=== PATIENT | female | born 1970 | race Caucasian/White ===

== ENCOUNTER 2020-12-24 10:49 | Day surgery (SDC) | payer BC, SELFPAY ==
[2020-12-24] VITALS (14 sets, daily range): BP systolic 111–154; BP diastolic 63–112; PULSE 72–105; RESP 15–26; TEMP 36.1–36.9; O2SAT 93–100; BMI 29.0
--- NOTE | ~2020-12-24 | CT_ITS ---
EXAMINATION: CT abdomen pelvis w con INDICATION: Right-sided abdominal pain TECHNIQUE: Computed tomographic images of the abdomen and pelvis were obtained after the administrati on of 100 cc of Omnipaque 350 intravenous contrast. The dose-length product (DLP) was 530.56 mGy-cm. Automated exposure control and iterative reconstruction technique were employed. COMPARISON: 11/08/2007 FINDINGS: Minimal dependent atelectasis is present in the lung bases. The heart size is normal. The l iver is diffusely low in attenuation when compared with the spleen, consistent with hepatic steatosis . The spleen, pancreas, gallbladder, and adrenal glands are normal. Cysts of the kidneys measure up t o 1.6 cm on the right. The dilated appendix measures up to 1.2 cm. There is edematous stranding of th e periappendiceal fat. No perforation or periappendiceal abscess is identified. No pathologically enl arged abdominal or pelvic lymph nodes are identified. There is no free intraperitoneal gas or evidenc e of bowel obstruction. There is a tiny umbilical hernia containing fat. Changes of hysterectomy are noted. IMPRESSION: 1. Acute appendicitis. These findings were discussed with Dr. Celestino Fuller in the Emergency Depa rtment at 1416 hours on 12/24/2020. Reviewed, dictated and finalized at location A. IMPRESSION: 1. Acute appendicitis. These findings were discussed with Dr. Celestino Fuller in the Emergency Department at 1416 hours on 12/24/2020.
[2020-12-24 13:01] LABS: Add Urine Microscopic? YES; Appearance Urine Clear (Clear); Bacteria Urine Trace /hpf; Bilirubin Urine Negative (Negative); Blood Urine 1+ (Negative); Color Urine Yellow (Yellow); Glucose Urine UA Negative (Negative); Ketones Urine Negative (Negative); Leukocyte Esterase Ur Negative LEU/UL (Negative); Mucus Urine Rare /lpf; Nitrate Urine Negative (Negative); Protein Urine Negative (Negative); RBC Urine 0-2 /hpf (0-2); Specific Grav Ur 1.011 (1.001-1.035); Squamous Epithelial Cell Urine Occasional /hpf (Few); Urobilinogen Urine Negative mg/dL (<2.0); WBC Urine 0-3 /hpf
[2020-12-24 13:02] LABS: Basophils Percent Auto 0.4 % (0.2-1.2); Eosinophils Absolute Auto 0.3 K/mm3 (0-0.3); Eosinophils Percent Auto 2.6 % (0-4.4); Immature Granulocyte Absolute 0.03 K/mm3 (0.00-0.031); Immature Granulocyte Percent A 0.3 % (0-0.5); Lymphocytes Absolute Auto 2.58 K/mm3 (0.9-3.2); Lymphocytes Percent Auto 26.7 % (18.3-44.2); Mean Corpuscular HGB Conc 32.6 g/dl (32-36); Mean Corpuscular Hemoglobin 30.7 pg (26-34); Mean Corpuscular Volume 94.3 fl (80-100); Mean Platelet Volume 9.8 fl (7.4-10.4); Monocytes Absolute Auto 0.5 K/mm3 (0.1-0.6); Monocytes Percent Auto 5.3 % (2.6-8.5); Neutrophils Absolute Auto 6.3 K/mm3 (1.3-6.7); Neutrophils Percent Auto 64.7 % (45.5-73.1); Platelet Count Result 293 k/mm3 (150-375); Red Blood Count 4.88 M/mm3 (4.2-5.4); Red Cell Distribution Width 12.8 % (11.5-14.5); White Blood Count 9.7 K/mm3 (4.5-10.0)
--- NOTE | 2020-12-24 13:12 | PC.NURSE ---
EDP AT BEDSIDE.
--- NOTE | 2020-12-24 13:14 | ED.ABDPAIN ---
HPI - Abdominal Pain General Chief Complaint: Abdominal Pain Stated Complaint: right abd pain Time Seen by Provider: 12/24/20 13:09 Source: RN notes reviewed History of Present Illness HPI narrative: Patient presents emergency department from home for abdominal pain. Patient states that pain began 2 days ago in the periumbilical area and has since been localized to the right lower quadrant described as aching in nature. States is associated with nausea. Denies any fevers or chills chest pain, shortness of breath, vomiting, diarrhea or any other symptoms patient states she is taking no medication for the pain today. Gone to urgent care for evaluation was referred to the ED for further evaluation Related Data Allergies Allergy/AdvReac Type Severity Reaction Status Date / Time No Known Allergies Allergy Unverified 05/19/17 06:33 Review of Systems Review of Systems: Narrative: Gen.: Denies fevers or chills ENT: Denies congestion Respiratory: Denies shortness of breath or cough CV: Denies chest pain or palpitations GI: See HPI denies burning, urgency, frequency or hematuria Musculoskeletal: Denies back pain or muscle pain Neuro: Denies numbness, tingling, weakness or focal weakness Skin: Denies rash Except as documented, all other systems reviewed and negative PMFSH Past Medical History Medical History (Updated 12/24/20 @ 15:10 by Celestino Fuller DO) Patient denies significant medical history Social History Social History Smoking status: Never smoker Alcohol intake: current Exam Narrative: Exam Narrative: APPEARANCE: No acute distress, nontoxic, resting in bed HEENT: Normocephalic, atraumatic, OMM RESPIRATORY: No respiratory distress, clear to auscultation bilaterally with no rhonchi wheezing or rales CARDIOVASCULAR: RRR s murmur ABDOMINAL: Soft nondistended tender palpation right lower quadrant no tenderness in right upper quadrant left lower quadrant positive rebound no guarding MUSCULOSKELETAl: Moves all extremities. No clubbing, cyanosis or edema. NEURO: Awake and alert. Following commands, speech normal, no focal deficits SKIN:: Warm, dry. Normal Color PSYCHIATRIC: Normal affect/mood Course Course Emergency Course: Discussed with JEWELS Garcia for Dr. Menon came to evaluate patient in the ED. Dr. Menon will take the patient for surgery today Discussed with patient diagnosis of appendicitis discussed plan for ORN in agreement at this time all questions answered Vital Signs Vital signs: Vital Signs Temperature 98.3 F 12/24/20 11:24 Pulse Rate 84 12/24/20 11:24 Respiratory Rate 16 12/24/20 11:24 Blood Pressure 152/112 H 12/24/20 11:24 Pulse Oximetry 97 12/24/20 11:24 Temperature 98.3 F 12/24/20 11:24 Pulse Rate 78 12/24/20 15:01 Respiratory Rate 18 12/24/20 15:01 Blood Pressure 145/68 H 12/24/20 15:01 Pulse Oximetry 99 12/24/20 15:01 MDM - Abdominal Pain Lab Data Result diagrams: 12/24/20 12:19 12/24/20 12:19 Labs: Lab Results 12/24/20 12/24/20 12/24/20 Range/Units 12:19 12:19 12:28 WBC 9.7 (4.5-10.0) K/mm3 RBC 4.88 (4.2-5.4) M/mm3 Hgb 15.0 (12.0-15.0) g/dL Hct 46.0 (37.0-47.0) % MCV 94.3 (80-100) fl MCH 30.7 (26-34) pg MCHC 32.6 (32-36) g/dl RDW 12.8 (11.5-14.5) % Plt Count 293 (150-375) k/mm3 MPV 9.8 (7.4-10.4) fl Immature Gran % (Auto) 0.3 (0-0.5) % Neut % (Auto) 64.7 (45.5-73.1) % Lymph % (Auto) 26.7 (18.3-44.2) % [place] % (Auto) 5.3 (2.6-8.5) % Eos % (Auto) 2.6 (0-4.4) % Baso % (Auto) 0.4 (0.2-1.2) % Lymph # (Auto) 2.58 (0.9-3.2) K/mm3 [place] # (Auto) 0.5 (0.1-0.6) K/mm3 Eos # (Auto) 0.3 (0-0.3) K/mm3 Baso # (Auto) 0.0 (0.0-0.1) K/mm3 Abs Immat Gran (auto) 0.03 (0.00-0.031) K/mm3 Absolute Neuts (auto) 6.3 (1.3-6.7) K/mm3 Absolute Nucleated RBC 0.0 (0.0-0
[2020-12-24] MEDS: ONDANSETRON INJ 4 MG/2 ML VIAL IV PUSH (13:19)
[2020-12-24] MEDS: SODIUM CHLORIDE 0.9% IV 1,000 ML 999 ML IV CONT (13:19)
[2020-12-24 13:24] LABS: Alanine Aminotransferase 84 U/L (4-35); Albumin Level 4.9 g/dL (3.5-5.1); Alkaline Phosphatase 80 U/L (38-126); Anion Gap 11 mmol/L (8-16); Aspartate Amino Transferase 64 U/L (14-36); Bilirubin,Total 1.4 mg/dL (0.2-1.3); Blood Urea Nitrogen 12 mg/dL (7-17); Calcium 9.9 mg/dL (8.4-10.2); Carbon Dioxide 27 mmol/L (22-30); Chloride 104 mmol/L (98-107); Estimated CRCL calculation 69 ml/min; Estimated Glomerular Filt Rate > 60; Glucose 89 mg/dL (65-105); Lipase 390 U/L (23-300); Sodium 142 mmol/L (137-145)
--- NOTE | 2020-12-24 14:01 | PC.NURSE ---
PT IN CT
--- NOTE | 2020-12-24 15:01 | PC.NURSE ---
rEPORT TO OR AT THIS TIME, THEY ARE COMING TO GET PT.
--- NOTE | 2020-12-24 15:16 | PM.IMHP ---
H&P: HPI History of Present Illness Date/Time: 12/24/20 15:16 Chief Complaint: RLQ abdominal pain Narrative: This is a 50-year-old otherwise healthy female who presented to the ER with complaints of abdominal pain. She reports a gradual onset of mild central abdominal pain Monday afternoon, two days ago. This pain continued to worsen in severity and she developed decreased appetite, nausea, and chills. The pain continued into yesterday, but began to localize to the RLQ. She felt the pain began improving and only seemed aggravated with bending and movement. Due to the persistent pain, she decided to come to the ER today. CT scan of the abdomen and pelvis showed acute appendicitis with no evidence of perforation or abscess. Also incidentally noted was hepatic steatosis and right kidney cyst. Labs revealed a normal white blood cell count and mildly elevated LFTs. Our service was contacted by the ED physician for surgical evaluation of acute appendicitis. She is now seen in the ER. She reports her abdominal pain is very minimal at rest, but with movement and bending it gets worse. No other complaints at this time. She has only had a small amount of water early this morning for oral intake since yesterday evening. Review of Systems Review of Systems: All systems reviewed & are unremarkable except as noted in HPI and below Constitutional: Constitutional: Reports as per HPI, Reports chills, Denies fatigue and Denies fever(s) ENT: Reports system reviewed and no additional complaints, except as documented and Reports Normal hearing present Cardiovascular: Cardiovascular: Reports no additional cardiovascular complaints, Denies chest pain and Denies leg edema Respiratory: Respiratory: Reports no additional respiratory complaints, Denies cough and Denies dyspnea Gastrointestinal: Gastrointestinal: Reports as per HPI, Reports no additional gastrointestinal complaints, Reports abdominal pain, Denies melena, Denies bloating, Denies hematochezia, Denies change in bowel habits, Denies constipation, Denies diarrhea, Reports nausea and Denies vomiting Genitourinary: Genitourinary: Denies hematuria and Denies dysuria Musculoskeletal: Musculoskeletal: Denies abnormal gait, Denies deformity and Denies joint swelling Integumentary/Breasts: Skin/Breast: Denies wounds and Denies jaundice Neurologic: Reports system reviewed and no additional complaints, except as documented, Denies focal weakness, Denies numbness and Denies tingling PMFSH Past Medical History Medical History History of basal cell carcinoma Surgical History Surgical History History of hysterectomy Robotic total vaginal hysterectomy History of laparoscopy x 3 due to ovarian cysts Family History Family History Other No pertinent family history Social History Social History Smoking status: Never smoker Alcohol intake: current Alcohol use details: 1 drink per month Substance use: never Living arrangements: with family Occupation/Education: occupation 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 Home Medications and Allergies Allergies Allergy/AdvReac Type Severity Reaction Status Date / Time No Known Allergies Allergy Verified 12/24/20 15:31 Vital Signs Vital Signs - 24 hr 12/24/20 11:24 12/24/20 13:29 12/24/20 15:01 Temperature 98.3 F Pulse Rate 84 82 78 Respiratory Rate 16 15 18 Blood Pressure 152/112 H 150/98 H 145/68 H Pulse Oximetry 97 99 99 Exam Const: General: comfortable, no acute distress, alert and awake Nutritional Appearance: overweight Orientation/consciousness: patient oriented x3 HENMT: Head: normocephalic and atraumatic Ears: hearing grossly normal bilaterally and external ears normal
--- NOTE | 2020-12-24 16:04 | WPDANESEPPF ---
Anes - Initial Pre Proc Eval Procedure: Operation Date: 12/24/20 15:00 Proposed Procedures p Laparoscopic Appendectomy - Eyad Menon MD Date/Time: 12/24/20 16:04 Surgeon: Eyad Menon MD Pre Op Diagnosis: right abd pain Patient Data Age: 50 Gender: F Height: 1.65 m Weight: 79.3 kg Last Vital Signs Temp 36.9 C 12/24/20 15:35 Pulse 77 12/24/20 15:35 Resp 16 12/24/20 15:35 BP 151/85 H 12/24/20 15:35 Pulse Ox 100 12/24/20 15:35 Allergies Allergy/AdvReac Type Severity Reaction Status Date / Time No Known Allergies Allergy Verified 12/24/20 15:31 Laboratory Tests 12/24/20 12/24/20 12/24/20 12:19 12:19 12:28 WBC 9.7 K/mm3 K/mm3 (4.5-10.0) RBC 4.88 M/mm3 M/mm3 (4.2-5.4) Hgb 15.0 g/dL g/dL (12.0-15.0) Hct 46.0 % % (37.0-47.0) MCV 94.3 fl fl (80-100) MCH 30.7 pg pg (26-34) MCHC 32.6 g/dl g/dl (32-36) RDW 12.8 % % (11.5-14.5) Plt Count 293 k/mm3 k/mm3 (150-375) MPV 9.8 fl fl (7.4-10.4) Immature Gran % (Auto) 0.3 % % (0-0.5) Neut % (Auto) 64.7 % % (45.5-73.1) Lymph % (Auto) 26.7 % % (18.3-44.2) [place] % (Auto) 5.3 % % (2.6-8.5) Eos % (Auto) 2.6 % % (0-4.4) Baso % (Auto) 0.4 % % (0.2-1.2) Lymph # (Auto) 2.58 K/mm3 K/mm3 (0.9-3.2) [place] # (Auto) 0.5 K/mm3 K/mm3 (0.1-0.6) Eos # (Auto) 0.3 K/mm3 K/mm3 (0-0.3) Baso # (Auto) 0.0 K/mm3 K/mm3 (0.0-0.1) Abs Immat Gran (auto) 0.03 K/mm3 K/mm3 (0.00-0.031) Absolute Neuts (auto) 6.3 K/mm3 K/mm3 (1.3-6.7) Absolute Nucleated RBC 0.0 K/mm3 K/mm3 (0.0-0.012) Nucleated RBC % 0.0 % % (0.0-0.2) Sodium 142 mmol/L mmol/L (137-145) Potassium 4.0 mmol/L mmol/L (3.4-5.0) Chloride 104 mmol/L mmol/L (98-107) Carbon Dioxide 27 mmol/L mmol/L (22-30) Anion Gap 11 mmol/L mmol/L (8-16) BUN 12 mg/dL mg/dL (7-17) Creatinine 0.90 mg/dL mg/dL (0.7-1.0) Estim Creat Clear Calc 69 ml/min ml/min Estimated GFR > 60 (59 - ) Glucose 89 mg/dL mg/dL (65-105) Calcium 9.9 mg/dL mg/dL (8.4-10.2) Total Bilirubin 1.4 mg/dL H mg/dL (0.2-1.3) AST 64 U/L H U/L (14-36) ALT 84 U/L H U/L (4-35) Alkaline Phosphatase 80 U/L U/L (38-126) Total Protein 9.0 g/dL H g/dL (6.3-8.2) Albumin 4.9 g/dL g/dL (3.5-5.1) Lipase 390 U/L H U/L (23-300) Urine Color Yellow (Yellow) Urine Appearance Clear (Clear) Urine pH 6.0 (5.0-9.0) Ur Specific [place] 1.011 (1.001-1.035) Urine Protein Negative mg/dL mg/dL (Negative) Urine Glucose (UA) Negative mg/dL mg/dL (Negative) Urine Ketones Negative mg/dL mg/dL (Negative) Ur Blood (Man) 1+ H (Negative) Urine Nitrate Negative (Negative) Urine Bilirubin Negative (Negative) Urine Urobilinogen Negative mg/dL mg/dL (<2.0) Leukocyte Esterase Rfl Negative COLE/UL COLE/UL (Negative) Urine RBC 0-2 /hpf /hpf (0-2) Urine WBC 0-3 /hpf /hpf Ur Squamous Epith Cells Occasional /hpf /hpf (Few) Urine Bacteria Trace /hpf /hpf Urine Mucus Rare /lpf /lpf Patient hx anesthesia problems: none Family hx anesthesia problems: none [facility] Past Medical History Medical History History of basal cell carcinoma Surgical History Surgical History History of hysterectomy Robotic total vaginal hysterectomy History of laparoscopy x 3 due to ovarian cysts Family History Family History (Rev
--- NOTE | 2020-12-24 16:12 | WPDHPUPDATE1 ---
History and Physical Update Update Date/Time: 12/24/20 16:12 History and Physical has been reviewed, including an updated exam of the patient. There are NO changes in the patient's condition. Risks, benefits, and alternatives have been discussed and questions answered. Patient agrees to proceed with procedure.
[2020-12-24] MEDS: ceFAZolin 2 GM/D5W 50 ML 2 GM/50 ML BAG IVPB (16:17)
[2020-12-24] MEDS: metroNIDAZOLE 500 MG/ISO 100ML 500 MG/100 ML BAG 100 MG IVPB (16:17)
[2020-12-24] MEDS: BUPIVACAINE/EPINEPHRINE 0.5% 10 ML VIAL 20 ML INFILTRATE (16:35)
[2020-12-24] MEDS: LACTATED RINGERS 1,000 ML 30 ML IV CONT ×2 (17:20→17:22)
--- NOTE | 2020-12-24 17:20 | PM.SD2 ---
Same Day Admit/Disch: HPI History of Present Illness Chief complaint: right abd pain Narrative: Ayleen Bernal is a 50 year old female who presented to the emergency room with right lower quadrant pain and tenderness. CT scan showed acute appendicitis. 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 Admit/Disch: Med Pre-admit Medications Home Medications Medication Instructions Recorded Confirmed Type hydrocodone-acetaminophen 1 - 2 tablet PO Q6H PRN #7 tablet 12/24/20 Rx ibuprofen 600 mg PO Q6H PRN #14 tablet 12/24/20 Rx Exam GI: Inspection: normal to inspection GI Palp: Yes Tenderness to palpation present (GI) (Right lower quadrant with guarding), Yes Guarding due to palpation present (GI) and No Palpable mass present Auscultation: normal bowel sounds DS: Data Data Completed and Pending Pending studies at discharge: Pending at discharge 12/24/20 16:37 Surgical [PTH] Routine Labs on day of discharge: Labs from last 24 hours 12/24/20 12/24/20 12/24/20 12:28 12:19 12:19 WBC 9.7 RBC 4.88 Hgb 15.0 Hct 46.0 MCV 94.3 MCH 30.7 MCHC 32.6 RDW 12.8 Plt Count 293 MPV 9.8 Immature Gran % (Auto) 0.3 Neut % (Auto) 64.7 Lymph % (Auto) 26.7 [place] % (Auto) 5.3 Eos % (Auto) 2.6 Baso % (Auto) 0.4 Lymph # (Auto) 2.58 [place] # (Auto) 0.5 Eos # (Auto) 0.3 Baso # (Auto) 0.0 Abs Immat Gran (auto) 0.03 Absolute Neuts (auto) 6.3 Absolute Nucleated RBC 0.0 Nucleated RBC % 0.0 Sodium 142 Potassium 4.0 Chloride 104 Carbon Dioxide 27 Anion Gap 11 BUN 12 Creatinine 0.90 Estim Creat Clear Calc 69 Estimated GFR > 60 Glucose 89 Calcium 9.9 Total Bilirubin 1.4 H AST 64 H ALT 84 H Alkaline Phosphatase 80 Total Protein 9.0 H Albumin 4.9 Lipase 390 H Urine Color Yellow Urine Appearance Clear Urine pH 6.0 Ur Specific [place] 1.011 Urine Protein Negative Urine Glucose (UA) Negative Urine Ketones Negative Ur Blood (Man) 1+ H Urine Nitrate Negative Urine Bilirubin Negative Urine Urobilinogen Negative Leukocyte Esterase Rfl Negative Urine RBC 0-2 Urine WBC 0-3 Ur Squamous Epith Cells Occasional Urine Bacteria Trace Urine Mucus Rare DS: Summary Hospital Course Hospital Course: Patient noted to have acute appendicitis in the emergency room. She was taken to surgery from the emergency room and underwent laparoscopic appendectomy per Dr. young. She was able to be discharged as an outpatient later the same day. Status at Discharge Overall status at discharge: patient is progressing back to baseline Time Spent with Patient Time attestation: Total time spent providing and/or coordinating discharge services: DS: Admitting Diagnosis Admitting Diagnosis Admitting Diagnosis: Acute appendicitis DS: Discharge Diagnosis Discharge Diagnosis (1) Acute appendicitis: Code(s): K35.80 - Unspecified acute appendicitis Status: Acute Discharge Plan Discharge Patient Disposition: Home, Self-Care Discharge Instructions: 1. May shower the day after surgery over incisions. 2. Call
--- NOTE | 2020-12-24 17:28 | W.PM.PROC2 ---
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 Anesthesia general and local (0.5% Marcaine with epinephrine) Indications Patient is a 50-year-old woman who experienced mid abdominal pain that involved nausea poor appetite. The pain persisted and moved to the right lower quadrant. She went to the emergency room where she was noted to have right lower quadrant tenderness and guarding. CT scan of the abdomen and pelvis was done and showed acute appendicitis with a 1.2 cm appendiceal diameter. There was periappendiceal stranding. She is taken to surgery now for laparoscopic appendectomy. Findings Acute non perforated appendicitis Description of Procedure Patient was taken to surgery and induced into general anesthesia. The abdomen is prepped and draped. Trocars were placed in the usual fashion using 0.5% Marcaine with epinephrine and applied Medical optical trocars. A 5 mm camera was used. Patient was placed in Trendelenburg with the right side elevated. The appendix was found and was acutely inflamed. It was elevated and adhesions were taken down to mobilize the appendix further. Dissection was carried out in the mesoappendix, cauterizing and dividing the appendiceal artery and other vessels there in. Eventually the mesoappendix was divided in the base of the appendix was skeletonized. A Vicryl endoloop was used and the base the appendix was ligated. The appendix was amputated just above the ligature. The mucosa of the appendiceal stump was cauterized. The appendix was placed in an Endo-Catch bag immediately and extricated through the 10 11 left lower quadrant trocar. The trocar was replaced and we reviewed the areas of dissection and the appendiceal stump. All looked good with no evidence of bleeding or other issues. We irrigated and suctioned the area. All looked good. We then evacuated CO2 and removed the trocar sleeves. Skin wounds were closed the subcuticular 4 O Monocryl skin suture. The wounds were dressed with Exofin surgical adhesive. Patient was awakened and taken to recovery in good condition. Sponge and needle counts were correct x2. Estimated Blood Loss 30 Drains No Packing No Pathology yes (Appendix) Complications None Condition stable Disposition PACU
--- NOTE | 2020-12-24 18:00 | SUR.PHASEI ---
Simple mask removed at 1800.
[2020-12-24] MEDS: fentaNYL CITRATE INJ (*CRX) 100 MCG/2 ML VIAL 25 MCG IV PUSH ×2 (18:32→18:34)
== END 2020-12-24 20:01 | disposition home or self-care (01) ==
LOC: ANHED 14:55 → ANHSURGERY 15:07
PROVIDERS: Emergency Medicine; Emergency Provider Emergency Medicine; Visit Provider Surgery
PROC: 0DTJ4ZZ Resection of Appendix, Percutaneous Endoscopic Approach (ICD-10-PCS; CPT 44970; principal; 2020-12-24 15:00)
DX: K35.30 Acute appendicitis with localized peritonitis, without perforation or gangrene (principal); K42.9 Umbilical hernia without obstruction or gangrene
CPT/HCPCS: 44970; 36415; 74177; 80053; 81001; 81025; 83690; 85025; 88304; 96361; 96374; 99285; A9270; J0131; J0330; J0690; J1100; J2250; J2405; J2704; J3010; J7030; J7120; Q9967

== ENCOUNTER → 2021-06-28 07:03 | Outpatient (REF) | payer BC, SELFPAY | LOC: ANHLAB 07:03 | PROVIDERS: Visit Provider Nurse Practitioner | DX: C44.519 Basal cell carcinoma of skin of other part of trunk (principal); C44.311 Basal cell carcinoma of skin of nose | CPT/HCPCS: 88305; 88331 ==

== ENCOUNTER → 2022-05-06 08:07 | Outpatient (CLI) | payer BC, SELFPAY ==
--- NOTE | ~2022-05-06 | MMUS_ITS ---
EXAMINATION: MM diagnostic chantel BI w phan, US breast RT limited HISTORY: History of prior benign biopsy. TECHNIQUE: Additional 3-D tomosynthesis images of the breasts were performed and synthetic 2-D images were generated. CAD analysis was submitted and interpreted. High resolution right limited breast ult rasound was performed. COMPARISON: Comparison to multiple prior studies sequentially, with oldest reviewed study dated 12/2016. BREAST PARENCHYMAL COMPOSITION: Breast composed of scattered areas of fibroglandular density FINDINGS: MAMMOGRAPHIC FINDINGS: The breasts are stable. No new masses, calcifications or architectural distortion in either breast to suggest malignancy. There is a tissue marker in the lower inner quadrant of the left breast from pre vious benign biopsy. ULTRASOUND: Limited right breast ultrasound: At 9:00 near the nipple there is a 3 mm round hypoechoic mass with l ow level internal echoes, most likely benign. No other masses are identified. IMPRESSION: 1. Probable benign 3 mm right breast mass at 9:00 near the nipple. No evidence for malignancy in the left breast. 2. Recommend 6 month follow-up Limited right breast ultrasound. BI-RADS category 3, probably benign findings. Reviewed, dictated and finalized at location A. IMPRESSION: 1. Probable benign 3 mm right breast mass at 9:00 near the nipple. No evidence for malignancy in the left breast. 2. Recommend 6 month follow-up Limited right breast ultrasound. BI-RADS category 3, probably benign findings.
== END ==
DX: Z87.898 Personal history of other specified conditions (principal); R92.8 Other abnormal and inconclusive findings on diagnostic imaging of breast
CPT/HCPCS: 76642; 77062; 77066; G0279

== ENCOUNTER → 2022-05-28 08:36 | Outpatient (CLI) | payer BC, SELFPAY ==
--- NOTE | ~2022-05-28 | US_ITS ---
EXAMINATION: US abdomen limited DATE: 05/28/2022 09:00 INDICATION: Elevation of levels of liver transaminase levels TECHNIQUE: Multiple grayscale and Doppler ultrasound images of limited portions of the abdomen were o btained. COMPARISON: CT abdomen and pelvis 12/24/2020; ultrasound kidney 09/10/2009. FINDINGS: The visualized portions of the pancreas are normal. The liver is enlarged with increased ec hogenicity and normal echotexture. No surface nodularity. Normal hepatopetal flow in the main portal vein. The gallbladder is normal with no abnormal wall thickening, pericholecystic fluid or stones. Th e common bile duct measures 5 mm. There was no sonographic Mcnally sign. IMPRESSION: Hepatomegaly. Echogenic liver, most commonly due to steatosis but also can be seen with hepatitis and fibrosis. Reviewed, dictated and finalized at location K. [employer] PRACTICE CONSULTANT IMPRESSION: Hepatomegaly. Echogenic liver, most commonly due to steatosis but also can be s een with hepatitis and fibrosis.
== END ==
DX: R74.01 Elevation of levels of liver transaminase levels (principal); R16.0 Hepatomegaly, not elsewhere classified
CPT/HCPCS: 76705

== ENCOUNTER → 2022-12-02 10:12 | Outpatient (CLI) | payer BC, SELFPAY ==
--- NOTE | ~2022-12-02 | US_ITS ---
US breast RT limited DATE: 12/02/2022 11:09 INDICATION: Six-month follow-up of right breast mass TECHNIQUE: Real-time and color flow imaging targeted at 9:00 subareolar area COMPARISON: 05/2022 diagnostic bilateral mammogram and limited right breast ultrasound 05/18/2017 bilateral diagnostic mammogram and bilateral complete breast ultrasound examination FINDINGS: There is an approximately 2.2 x 2.5 mm hypoechoic lesion at the 9:00 subareolar area. The m argins are mildly irregular. There is an adjacent vessel on color flow imaging. No lesion was identified in this location on 05/18/2017 ultrasound examination. Ultrasound-guided bio psy is recommended given the fact that this is a new lesion since 2017 and considering the mildly irr egular margins. IMPRESSION: BI-RADS Category 4: Suspicious abnormality; biopsy should be considered Recommendation: Ultrasound-guided biopsy of 9:[address] Santoro telephoned the report and ultrasound-guided biopsy recommendation to ctjesus at [phone] on 12/02/2022 at 1120 hours. Reviewed, dictated and finalized at Location A. Reviewed, dictated and finalized at location A. IMPRESSION: BI-RADS Category 4: Suspicious abnormality; biopsy should be consid ered Recommendation: Ultrasound-guided biopsy of 9:[address] Santoro telephoned the report and ultrasound-guided biopsy recommendation to jerome wong at [phone] on 12/02/2022 at 1120 hours.
== END ==
DX: Z12.31 Encounter for screening mammogram for malignant neoplasm of breast (principal); R92.0 Mammographic microcalcification found on diagnostic imaging of breast; R92.8 Other abnormal and inconclusive findings on diagnostic imaging of breast
CPT/HCPCS: 76642